=== PATIENT | female | born 1990 | race Two or more races ===

== ENCOUNTER 2022-12-28 14:29 | Emergency (ER) | payer MEDICAID, OTHER ==
[~2022-12-28] VITALS: Ht 157.5 cm; Wt 58.9 kg
[2022-12-28 14:50] VITALS: BP 126/75
== END 2022-12-28 16:27 | disposition left against medical advice (07) ==
LOC: ER 14:29
DX: M54.2 Cervicalgia (principal); Z53.21 Procedure and treatment not carried out due to patient leaving prior to being seen by health care provider